=== PATIENT | female | born 1995 | race Two or more races ===

== ENCOUNTER 2023-05-26 08:06 | Outpatient (CLI) | payer OTHER | END 2023-05-26 08:15 | disposition home or self-care (01) | LOC: PRENATAL 08:06 | PROVIDERS: ATTEND Obstetrics & Gynecology Maternal & Fetal Medicine | DX: O36.80X0 Pregnancy with inconclusive fetal viability, not applicable or unspecified (principal); Z36.82 Encounter for antenatal screening for nuchal translucency; Z3A.13 13 weeks gestation of pregnancy ==

== ENCOUNTER 2023-07-14 07:53 | Outpatient (CLI) | payer OTHER | END 2023-07-14 07:55 | disposition home or self-care (01) | LOC: PRENATAL 07:53 | PROVIDERS: ATTEND Obstetrics & Gynecology Maternal & Fetal Medicine | DX: O35.9XX0 Maternal care for (suspected) fetal abnormality and damage, unspecified, not applicable or unspecified (principal); O35.3XX0 Maternal care for (suspected) damage to fetus from viral disease in mother, not applicable or unspecified; O44.00 Complete placenta previa NOS or without hemorrhage, unspecified trimester; Z3A.20 20 weeks gestation of pregnancy ==

== ENCOUNTER 2023-07-22 09:08 | Emergency (ER) | payer OTHER ==
[~2023-07-22] VITALS: Ht 162.6 cm; Wt 61.2 kg
[2023-07-22] MEDS ORDERED: CHILDREN'S ASPI81 MG PO (09:32)
[2023-07-22] MEDS ORDERED: PRENA1 CHEW TA1.4 MG PO (09:32)
== END 2023-07-22 10:14 | disposition home or self-care (01) ==
LOC: ER 09:10
DX: O26.892 Other specified pregnancy related conditions, second trimester (principal); Z3A.20 20 weeks gestation of pregnancy; R04.0 Epistaxis

== ENCOUNTER → 2024-09-18 | Emergency (ER) | payer OTHER ==
[~2024-09-18] VITALS: Ht 142.2 cm; Wt 63.5 kg
[~2024-09-18] MED LIST: AZITHROMYCIN500 MG PO; BENZONATATE 200 MG CAPSULE PO ONE; BENZONATATE200 M1 PO; CHILDREN'S ASPI81 MG PO; IPRATROPIUM BROMIDE 0.5 MG/2.5 ML AMPUL.NEB IH ONE; LEVALBUTER0.63 MG/3 IH; LEVALBUTEROL HCL 1.25 MG/3 ML SOLUTION IH ONE; MAGNESIUM SULFATE IN WATER 50 ML IV STA; MEDROLPACK PO; METHYLPREDNISOLONE SOD SUCC 125 MG VIAL IV ONE; METHYLPREDNISOLONE SOD SUCC 125 MG VIAL ONE; PEPCID AC20 MG PO; PRENA1 CHEW TA1.4 MG PO; SINGULAIR10 MG PO
[2024-09-18 12:51] LABS: HEMATOCRIT 45.4 % (36.0-45.00); HEMOGLOBIN 15.8 g/dL (12.0-15.00); MEAN CELL VOLUME 93.7 fL (80.00-100.00); MEAN CORPUSCULAR HEMOGLOBIN 32.6 pg (27.00-32.0); MEAN CORPUSCULAR HGB CONC 34.8 g/dl (32.0-36.0); PLATELET COUNT 245 K/uL (150-450); RED BLOOD COUNT 4.85 M/uL (4.00-6.00); RED CELL DISTRIBUTION WIDTH 13.3 % (11.5-14.5)
== END | disposition home or self-care (01) ==
LOC: ER 10:39
PROVIDERS: General Practice
DX: J45.901 Unspecified asthma with (acute) exacerbation (principal); J00 Acute nasopharyngitis [common cold]; R05.8 Other specified cough; Z20.822 Contact with and (suspected) exposure to COVID-19
CPT/HCPCS: 36415; 99282; J3475; J3490

== ENCOUNTER 2024-11-24 12:57 | Emergency (ER) | payer OTHER ==
[~2024-11-24] VITALS: Ht 142.2 cm; Wt 59.0 kg
[~2024-11-24 12:57] MED LIST changes: -BENZONATATE 200 MG CAPSULE PO ONE; -IPRATROPIUM BROMIDE 0.5 MG/2.5 ML AMPUL.NEB IH ONE; -LEVALBUTEROL HCL 1.25 MG/3 ML SOLUTION IH ONE; -MAGNESIUM SULFATE IN WATER 50 ML IV STA; -METHYLPREDNISOLONE SOD SUCC 125 MG VIAL IV ONE; -METHYLPREDNISOLONE SOD SUCC 125 MG VIAL ONE
[2024-11-24] MEDS ORDERED: SILVER NITRATE APPLICATOR 1 PKT EACH TOP STA (13:54)
== END 2024-11-24 14:44 | disposition home or self-care (01) ==
LOC: ER 12:57
DX: T30.0 Burn of unspecified body region, unspecified degree (principal)

== ENCOUNTER 2025-02-06 06:49 | Emergency (ER) | payer OTHER ==
[~2025-02-06] VITALS: Ht 142.2 cm; Wt 59.0 kg
[2025-02-06] MEDS ORDERED: KETOROLAC TROMETHAMINE 60 MG VIAL IM STA (07:50)
[2025-02-06 08:12] LABS: BASO % 0.3 % (0.1-1.2); EOS # 0.11 (0.04-0.54); EOS % 1.7 % (0.7-7.0); LYMPH # 2.17 (1.18-3.74); LYMPH % 34.1 % (19.3-53.1); MEAN PLATELET VOLUME 11.70 fl (9.4-12.4); MONO # 0.48 (0.24-0.82); MONO % 7.5 % (4.7-12.5); NEUT # 3.59 (1.56-6.13); NEUT % 56.4 % (34.0-71.1); RED CELL DISTRIBUTION WIDTH 12.4 % (11.6-14.4)
[2025-02-06 09:27] LABS: URINE APPEARANCE Clear; URINE BILIRRUBIN Negative (NEGATIVE); URINE COLOR Yellow; URINE GLUCOSE Negative (NEGATIVE); URINE KETONE Negative (NEGATIVE); URINE LEUKOCYTE Small; URINE NITRATE Negative; URINE PROTEIN Negative (NEGATIVE); URINE UROBILINOGEN 0.2 E.U./dl
[2025-02-06 09:30] LABS: URINE BACTERIA 2362.4 uL (0.0-1933); URINE EPITHELIAL CELLS 64.2 uL (0.0-38.8); URINE RBC 3.3 uL (0.0-20.8); URINE WBC 170.4 uL (0.0-23.2)
[2025-02-06 09:50] LABS: URINE BLOOD TRACES; URINE CAST 0.14 uL (0.0-1.40)
== END 2025-02-06 10:57 | disposition home or self-care (01) ==
LOC: ER 06:49
PROVIDERS: Emergency Medicine
DX: R10.2 Pelvic and perineal pain (principal)

== ENCOUNTER → 2025-05-15 | Emergency (ER) | payer OTHER ==
[~2025-05-15] VITALS: Ht 142.2 cm; Wt 57.2 kg
[~2025-05-15] MED LIST changes: +NORFLEX100MG PO; +TRAMADOL HCL 50 MG TABLET PO ONE
== END | disposition home or self-care (01) ==
LOC: ER 18:03
DX: S39.82XA Other specified injuries of lower back, initial encounter (principal); W19.XXXA Unspecified fall, initial encounter; Y93.89 Activity, other specified; Y92.89 Other specified places as the place of occurrence of the external cause; Y99.8 Other external cause status; R51.9 Headache, unspecified; M54.59 Other low back pain

== ENCOUNTER → 2025-06-14 | Emergency (ER) | payer OTHER ==
[~2025-06-14] VITALS: Ht 142.2 cm; Wt 56.7 kg
[~2025-06-14] MED LIST changes: +ACETAMINOPHEN 500 MG GEL..CAP PO ONE; +ALLER-TEC10 MG PO; +CETIRIZINE HCL 10 MG TABLET PO ONE; +DELSYM COUGH-S180 ML PO; +DEXAMETHASONE SODIUM PHOSPHATE 4 MG/ML VIAL IM STA; +DEXAMETHASONE SODIUM PHOSPHATE 4 MG/ML VIAL ONE; +GUAIFENESIN 200 MG/10 ML BLIST.PACK PO ONE; -TRAMADOL HCL 50 MG TABLET PO ONE
[2025-06-14 11:44] LABS: BASO % 0.6 % (0.1-1.2); EOS # 0.08 (0.04-0.54); EOS % 1.1 % (0.7-7.0); LYMPH # 2.08 (1.18-3.74); LYMPH % 29.1 % (19.3-53.1); MEAN PLATELET VOLUME 12.00 fl (9.4-12.4); MONO # 0.45 (0.24-0.82); MONO % 6.3 % (4.7-12.5); NEUT # 4.48 (1.56-6.13); NEUT % 62.8 % (34.0-71.1); RED CELL DISTRIBUTION WIDTH 12.3 % (11.6-14.4)
[2025-06-14 12:50] LABS: COVID-19 AG NEGATIVE (NEGATIVE)
== END | disposition home or self-care (01) ==
LOC: ER 08:59
PROVIDERS: General Practice
DX: J98.8 Other specified respiratory disorders (principal); Z20.822 Contact with and (suspected) exposure to COVID-19